=== PATIENT | female | born 1995 | race Caucasian/White ===

== ENCOUNTER 2016-06-27 20:58 | Emergency (ER) | payer OTHER ==
[~2016-06-27] VITALS: Ht 170.2 cm; Wt 61.4 kg
[2016-06-27] MEDS ORDERED: HYCET 7.5 MG-3473 ML PO (21:34)
[2016-06-27] MEDS ORDERED: ZOFRAN4 MG PO (22:29)
[2016-06-27 22:46] VITALS: BP 131/62
== END 2016-06-27 22:46 | disposition home or self-care (01) ==
LOC: EME 20:58
DX: R11.10 Vomiting, unspecified (principal); Z98.890 Other specified postprocedural states
CPT/HCPCS: 99281; 99284